=== PATIENT | female | born 1955 | race Caucasian/White ===

== ENCOUNTER 2020-07-19 10:17 | Inpatient (IN) | payer OTHER ==
[2020-07-19] MEDS ORDERED: Lactated Ringers 1,000 ML IV SCH ×2 (10:45→14:45)
[2020-07-19] MEDS ORDERED: Cyanocobalamin (Vitamin B12) 1,000 MCG/ML SDV IM ONE (10:45)
[2020-07-19] MEDS ORDERED: Glycopyrrolate 0.2 MG/ML 2 ML SDV IVPUSH ONE (11:30)
[2020-07-19] MEDS ORDERED: MVI, Adult with Vitamin K 10 ML, Thiamine 200 MG, Chromium/Copper/Mang/Selen/Zn 1 ML in... IV ONE ×4 (11:45)
[2020-07-19] MEDS ORDERED: Midazolam 1 MG/ML 2 ML SDV ONE (12:11)
[2020-07-19] MEDS ORDERED: fentaNYL 100 MCG/2 ML SDV ONE (12:11)
[2020-07-19] MEDS ORDERED: Propofol 200 MG/20 ML SDV ONE (12:11)
[2020-07-19] MEDS ORDERED: Iopamidol 612 MG/ML 500 ML Multipack Bottle PO ONE (14:13)
[2020-07-19] MEDS ORDERED: Iopamidol 612 MG/ML 500 ML Multipack Bottle IV ONE (14:14)
--- NOTE | 2020-07-19 15:29 | CT ---
Abdomen Pelvis w Cont CLINICAL HISTORY: Possible small bowel obstruction, previous bariatric surgery COMPARISON: None. TECHNIQUE: Transverse scans were obtained from the base of the lungs to the pubic symphysis following oral contrast and IV infusion of contrast.Auto dosage reduction and iterative reconstructiontechniques employed. FINDINGS: The lung bases are clear. There has been previous bariatric surgery. The liver has a wedge-shaped area of low-attenuation in the anterior segment of the right lobe of the liver. This is also seen in the falciform ligament. This may represent some focal fatty infiltration. Anatomic variant is also a consideration. Mass is felt less likely. TThe gallbladder has a normal appearance. The spleen has a normal size and shape. The pancreas shows no mass or inflammatory change. The adrenal glands appear normal bilaterally . The kidneys show no mass, stones or hydronephrosis. The ureters have normal course and contour. The bladder has a normal contour The aorta is free of aneurysm. There is no suspicious retroperitoneal adenopathy. Small intestinal configuration is nonacute. The appendix is not definitively identified IMPRESSION: Previous gastric bypass Small intestinal configuration is nonacute. Areas of low-attenuation in the right lobe of the liver and near the falciform ligament are felt to be anatomic variant or some focal fatty infiltration. Mass is felt less likely but not excluded. Ultrasound recommended
[2020-07-19] MEDS: Dextrose 5%-Lactated Ringers 1,000 ML IV SCH (17:18)
[2020-07-19] MEDS: Vitamin A 100,000 Units/2 ML SDV IM SCH (17:18)
[2020-07-20] MEDS: Dextrose 5%-Lactated Ringers 1,000 ML IV SCH (03:12)
[2020-07-20] MEDS ORDERED: Naloxone 0.4 MG/ML SDV IV PRN (06:00)
[2020-07-20] MEDS: Losartan 50 MG Tab PO SCH (06:18)
[2020-07-20] MEDS ORDERED: fentaNYL 250 MCG/5 ML SDV ONE (09:18)
[2020-07-20] MEDS ORDERED: Glycopyrrolate 0.2 MG/ML 5 ML MDV ONE (09:19)
[2020-07-20] MEDS ORDERED: Rocuronium 50 MG/5 ML Vial ONE (09:19)
[2020-07-20] MEDS ORDERED: Succinylcholine 200 MG/10 ML MDV ONE (09:19)
[2020-07-20] MEDS ORDERED: Neostigmine Methylsulfate 1 MG/ML 5 ML Syringe ONE (09:19)
[2020-07-20] MEDS ORDERED: Dexamethasone 4 MG/ML SDV ONE (09:19)
[2020-07-20] MEDS ORDERED: Propofol 200 MG/20 ML SDV ONE (09:19)
[2020-07-20] MEDS ORDERED: Ondansetron 4 MG/2 ML SDV ONE (09:19)
[2020-07-20] MEDS: Venlafaxine 75 MG Cap.ER PO SCH (09:21)
[2020-07-20] MEDS ORDERED: Lidocaine 1% with EPINEPHrine 1:100,000 50 ML MDV ONE (10:24)
[2020-07-20] MEDS ORDERED: Meropenem 500 MG SDV ONE (10:24)
[2020-07-20] MEDS ORDERED: Bupivacaine 0.5% 50 ML MDV ONE (10:24)
[2020-07-20] MEDS ORDERED: cefOXitin 2 GM in Sodium Chloride 0.9% 50 ML IV ONE (11:00)
[2020-07-20] MEDS ORDERED: Ropivacaine 36 ML, dexAMETHasone 8 MG, EPINEPHrine 0.4 MG, Sodium Chloride 0.9% 41.6 ML NERVRT SCH ×4 (11:00)
[2020-07-20] MEDS ORDERED: Ketamine 50 MG in Sodium Chloride 0.9% 49.5 ML IV SCH (11:00)
[2020-07-20] MEDS ORDERED: Ketamine 500 MG/5 ML MDV IV SCH (11:00)
[2020-07-20] MEDS ORDERED: Magnesium Sulfate 2.1 GM in Sodium Chloride 0.9% 100 ML IV SCH (11:00)
[2020-07-20] MEDS ORDERED: Magnesium Sulfate 3.4 GM in Sodium Chloride 0.9% 250 ML IV ONE (11:00)
[2020-07-20] MEDS: Vitamin A 100,000 Units/2 ML SDV IM SCH (13:10)
[2020-07-20] MEDS ORDERED: Lactated Ringers 1,000 ML ONE (13:15)
[2020-07-20] MEDS ORDERED: fentaNYL 100 MCG/2 ML SDV ONE (13:59)
[2020-07-20] MEDS ORDERED: Dextrose 5%-Lactated Ringers 1,000 ML IV SCH (14:45)
[2020-07-20] MEDS ORDERED: Albuterol/Ipratropium 3.0-0.5 MG/3 ML Neb Soln INH PRN (15:00)
[2020-07-20] MEDS ORDERED: hydrOXYzine HCL 100 MG/2 ML SDV IM PRN (15:00)
[2020-07-20] MEDS ORDERED: Ondansetron 4 MG/2 ML SDV IVPUSH PRN (15:00)
[2020-07-20] MEDS ORDERED: Acetaminophen 500 MG Tab PO PRN (15:00)
[2020-07-20] MEDS ORDERED: Calcium Gluconate 10% 1 GM/10 ML SDV IVPUSH PRN (15:00)
[2020-07-20] MEDS ORDERED: Labetalol 20 MG/4 ML Syringe IVPUSH PRN (15:00)
[2020-07-20] MEDS ORDERED: Metoclopramide 10 MG/2 ML SDV IVPUSH PRN (15:00)
--- NOTE | 2020-07-20 15:21 | PN ---
DATE OF SERVICE: 07/20/2020 SUBJECTIVE: Lexie had an EGD yesterday and was found to have a partial small bowel obstruction. She is n.p.o., has no questions or concerns. OBJECTIVE: GENERAL: Lexie Hastings is a pleasant 65-year-old female. She is alert and orientated. VITAL SIGNS: TPR at 0728; 98.7, 67, 18, blood pressure 139/66. HEENT: Negative. NECK: Supple. HEART: Regular rate and rhythm. LUNGS: Clear. ABDOMEN: Negative. EXTREMITIES: Without peripheral edema. ASSESSMENT: Partial small bowel obstruction. PLAN: Orders have already been written. Consent signed. After preoperative evaluation, discussion of possible risks and possible complications, the patient wishes to proceed with surgical procedure. We will evaluate p.r.n. or in a.m. Orders to be written postoperatively. Josiane Bourne PA-C /[id number]
[2020-07-20] MEDS: HYDROmorphone/Normal Saline 15 MG/30 ML PCA IV PRN (15:48)
[2020-07-20] MEDS ORDERED: MVI, Adult with Vitamin K 10 ML, Thiamine 200 MG, Chromium/Copper/Mang/Selen/Zn 1 ML in... IV SCH ×4 (16:00)
[2020-07-20] MEDS ORDERED: Pantoprazole 40 MG Vial IVPUSH SCH (16:00)
[2020-07-20] MEDS: Acetaminophen 500 MG Tab PO SCH ×2 (16:46→23:35)
[2020-07-20] MEDS: cefOXitin 2 GM in Sodium Chloride 0.9% 50 ML IV SCH ×2 (17:15→23:35)
[2020-07-20] MEDS: Heparin Sodium 5,000 Units/ML Vial SUBCUT SCH (20:16)
[2020-07-20] MEDS: Celecoxib 200 MG Cap PO SCH (20:16)
[2020-07-21] MEDS: diphenhydrAMINE 50 MG/ML SDV IVPUSH PRN (03:16)
[2020-07-21] MEDS ORDERED: Iopamidol 612 MG/ML 50 ML SDV PO ONE (04:00)
[2020-07-21] MEDS: cefOXitin 2 GM in Sodium Chloride 0.9% 50 ML IV SCH ×3 (05:27→18:39)
[2020-07-21] MEDS: Dextrose 5%-Lactated Ringers 1,000 ML IV SCH (07:49)
[2020-07-21] MEDS: Celecoxib 200 MG Cap PO SCH ×2 (07:59→20:51)
[2020-07-21] MEDS: Acetaminophen 500 MG Tab PO SCH ×2 (07:59→15:13)
[2020-07-21] MEDS: Heparin Sodium 5,000 Units/ML Vial SUBCUT SCH ×2 (07:59→20:51)
[2020-07-21] MEDS: Venlafaxine 75 MG Cap.ER PO SCH (08:00)
[2020-07-21] MEDS: Losartan 50 MG Tab PO SCH (08:01)
[2020-07-21] MEDS: Docusate Sodium 100 MG Cap PO SCH ×2 (08:18→20:52)
[2020-07-21] MEDS: Bisacodyl 5 MG Tab PO SCH ×2 (08:18→20:52)
[2020-07-21] MEDS ORDERED: Vitamin A 100,000 Units/2 ML SDV IM ONE (10:00)
[2020-07-21] MEDS ORDERED: Sodium Chloride 0.9% 400 ML IV SCH (10:00)
[2020-07-21] MEDS: Pantoprazole 40 MG Tab.CR PO SCH (10:43)
[2020-07-21] MEDS: Sodium Ferric Gluconate Cmplex 250 MG in Sodium Chloride 0.9% 100 ML IV SCH (10:44)
[2020-07-21] MEDS: Cyclobenzaprine 10 MG Tab PO PRN (14:29)
--- NOTE | 2020-07-21 14:44 | PN ---
DATE OF SERVICE: 07/21/2020 The patient is postop day 1 from small bowel resection and strictureplasty for release of partial small-bowel obstruction. She is little bit unstable walking better today. Otherwise, we will go to a step-2 diet, back down on the IV rate. Her ferritin is now at 30, and this will likely drop over the next few days. Given this, we will give her some ferric gluconate today and tomorrow, and otherwise, begin some bowel stimulation. We will get the PROP DRAWER going for today. Yinka Jett MD /[id number]
[2020-07-21] MEDS ORDERED: MVI, Adult with Vitamin K 10 ML, Thiamine 200 MG, Chromium/Copper/Mang/Selen/Zn 1 ML in... IV SCH ×4 (16:00)
[2020-07-21] MEDS: HYDROmorphone/Normal Saline 15 MG/30 ML PCA IV PRN (16:25)
[2020-07-21] MEDS: Lactated Ringers 1,000 ML IV SCH ×2 (17:52→21:45)
[2020-07-21] MEDS ORDERED: Lactated Ringers 500 ML IV SCH (21:30)
[2020-07-22] MEDS: Acetaminophen 500 MG Tab PO SCH ×4 (01:56→23:46)
[2020-07-22] MEDS: Dextrose 5%-Lactated Ringers 1,000 ML IV SCH ×3 (03:49→19:49)
[2020-07-22] MEDS: diphenhydrAMINE 50 MG/ML SDV IVPUSH PRN ×2 (05:24→13:48)
[2020-07-22] MEDS: Pantoprazole 40 MG Tab.CR PO SCH (07:26)
[2020-07-22] MEDS: Heparin Sodium 5,000 Units/ML Vial SUBCUT SCH ×2 (07:27→20:19)
[2020-07-22] MEDS ORDERED: Cyanocobalamin (Vitamin B12) 1,000 MCG/ML SDV IM ONE (09:00)
[2020-07-22] MEDS: Venlafaxine 75 MG Cap.ER PO SCH (09:15)
[2020-07-22] MEDS: Tamsulosin 0.4 MG Cap.ER PO SCH ×2 (09:15→20:19)
[2020-07-22] MEDS: Vitamin A 10,000 Unit Cap PO SCH (09:15)
[2020-07-22] MEDS: Celecoxib 200 MG Cap PO SCH ×2 (09:16→20:27)
[2020-07-22] MEDS: Losartan 50 MG Tab PO SCH (09:16)
[2020-07-22] MEDS: Docusate Sodium 100 MG Cap PO SCH ×2 (09:16→20:19)
[2020-07-22] MEDS: HYDROmorphone 2 MG Tab PO PRN ×3 (09:36→20:19)
[2020-07-22] MEDS ORDERED: Sodium Chloride 0.9% 200 ML IV SCH (10:00)
[2020-07-22] MEDS: Sodium Ferric Gluconate Cmplex 250 MG in Sodium Chloride 0.9% 100 ML IV SCH (11:40)
[2020-07-22] MEDS ORDERED: Lactated Ringers 500 ML IV STA (13:52)
--- NOTE | 2020-07-22 14:43 | PN ---
DATE OF SERVICE: 07/22/2020 The patient has been afebrile with stable vital signs, moving her bowels, tolerated oral intake. We will back down on the IV rate. She has still retained urine and Pagan catheter was put back, and we will give her Flomax this morning as well as tonight and switch over to oral pain medications, step-3 diet. She may be ready for discharge home if she is able to tolerate the diet. Yinka Jett MD /[id number]
[2020-07-22] MEDS: Cyclobenzaprine 10 MG Tab PO PRN (20:19)
[2020-07-23] MEDS: HYDROmorphone 2 MG Tab PO PRN (03:44)
[2020-07-23] MEDS: Pantoprazole 40 MG Tab.CR PO SCH (07:55)
[2020-07-23] MEDS: Celecoxib 200 MG Cap PO SCH (09:07)
[2020-07-23] MEDS: Docusate Sodium 100 MG Cap PO SCH (09:07)
[2020-07-23] MEDS: Losartan 50 MG Tab PO SCH (09:08)
[2020-07-23] MEDS: Acetaminophen 500 MG Tab PO SCH (09:08)
[2020-07-23] MEDS: Vitamin A 10,000 Unit Cap PO SCH (09:08)
[2020-07-23] MEDS: Venlafaxine 75 MG Cap.ER PO SCH (09:09)
--- NOTE | 2020-07-23 09:35 | CR ---
[facility] HISTORY: Postbariatric surgery FINDINGS: Patient swallowed water-soluble contrast. Upright views of the abdomen show no evidence of extravasation or obstruction. IMPRESSION: Status post bariatric surgery No extravasation or obstruction seen
--- NOTE | 2020-07-23 12:37 | OR ---
DATE OF PROCEDURE: 07/20/2020 SURGEON: Yinka Jett MD PREOPERATIVE DIAGNOSIS: Partial small bowel obstruction. POSTOPERATIVE DIAGNOSES: 1. Partial small bowel obstruction secondary to: a. Small bowel volvulus. b. Focal narrowing of Moriah limb at the entrance of the jejunojejunostomy. c. 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 2. Incarcerated incisional (trocar site) hernia. OPERATIVE PROCEDURES: Exploratory laparotomy with lysis of adhesions: 1. Small bowel resection (56000). 2. Small bowel stricturoplasty (53126). 3. Repair of incarcerated incisional hernia (50833). 4. Placement of Interceed mesh (00546). ANESTHESIA: General. SCRAP METAL BURNER: Josiane Bourne PA-C INDICATIONS FOR PROCEDURE: Please see note dictated yesterday. Plan is to proceed with exploratory laparotomy with lysis of adhesions and/or bowel resection. Potential risks including bleeding, infection, leaks from GI tract closures, problems with bowel obstruction recurring or persisting over time were all reviewed, and the patient wishes to proceed. DETAILS OF PROCEDURE: The patient was taken to the operating room and placed in a supine position. After general endotracheal anesthesia was induced, she was converted to lithotomy position and a Pagan catheter inserted. A midline incision from the umbilicus roughly a handsbreadth toward the xiphoid was made and carried down through the full-thickness of abdominal wall. Peritoneal cavity was noted to have some more than normal clear ascitic fluid consistent with some degree of chronic bowel obstruction. Otherwise, examination of bowel showed there to be a focal volvulus where a portion of the common limb had prolapsed underneath the mesenteric defect underneath the jejunojejunostomy. After this was reduced, that area was subsequently closed off with a 2-0 silk stitch. The patient was noted to have some narrowing at the point where the Moriah limb entered the jejunojejunostomy and this area anastomosis somewhat dilated. There was a separate stricture at the point where the biliopancreatic limb joined the common limb with the biliopancreatic limb also being quite dilated, all consistent with the patient's preoperative symptoms. At this point, the point where the small bowel came as a Moriah limb to the jejunojejunostomy was divided with a AAMIR stapler. A small segment of this was resected and this was anastomosed and subsequently completed roughly 20 cm distal to the previous jejunojejunostomy with a [id number] enteroenterostomy with 2 internal firings of the AAMIR stapler; first 60 mm, then 30 mm stapler. The common opening closed transversely with the same stapler. The angles were anastomosed and mesenteric defect approximated with some 3-0 Vicryl stitch and the mesenteric defect with 2-0 silk stitch. The patient was noted to still have some stricturing at the outlet of the biliopancreatic limb junction with the common limb. This area was opened on its antimesenteric border and 2 internal firings of the 60 mm stapler were accomplished. Common opening was then closed transversely with the same stapler, and the angles anastomosed, and mesenteric defect approximated as per the first anastomosis. At this point, no further problems were noted. Of note, the patient was noted to have a trocar site hernia located just above the umbilicus with the hernia contents being excised upon entry to the abdomen. recurrent adhesion formation, Interceed mesh was placed underneath the incision, from there down toward the pelvis to displace those surfaces from the underlying viscera and limit recurrent adhesion formation. Bilateral transversus abdominis plane blocks were placed during the case and incisions then closed with #2 Vicryl stitch at the fascia level. The fascia was then anesthetized with 0.5% Marcaine mixed with lidocaine, and the subcutaneous tissue approximated with some 3-0 and 4-0 Vicryl stitch deep and lillian for the skin. Dressing was applied. The patient was taken to the recovery room in satisfactory condition. Physician parts room assistant, Josiane Bourne, played an essential role in assisting in this case, helping to position the patient, retract structures as needed, as well as suturing and cutting sutures when indicated. Her presence improved patient safety and decreased the operative time. Yinka Jett MD /[id number]
--- NOTE | 2020-07-23 13:01 | PN ---
DATE OF SERVICE: 07/19/2020 The patient underwent earlier today an upper endoscopy, which was entirely normal, status post gastric bypass, with the patient having had that procedure in 2003. She has had several weeks or months now of intermittent vomiting, and with a normal upper GI endoscopy, this would likely mean we are dealing with a partial small-bowel obstruction more distally in the system. A CT scan was obtained, which showed no obvious specific areas of obstruction, but this is commonly the case with these partial small-bowel obstructions following the gastric bypass. Given this, the plan will be to proceed with an exploratory laparotomy tomorrow and identification of any other problem if there is within the small bowel or elsewhere with lysis of adhesions and/or small bowel resection. The potential risks of the procedure, including bleeding, infection, leaks from various GI tract closures, and problems with persistence or recurrence of the problem over time, were reviewed, and the patient wishes to proceed and will be set up for tomorrow. Yinka Jett MD /[id number]
--- NOTE | 2020-07-23 13:16 | OR ---
DATE OF PROCEDURE: 07/19/2020 SURGEON: Yinka Jett MD PREOPERATIVE DIAGNOSIS: Status post Moriah-en-Y gastric bypass with history of recurrent vomiting. POSTOPERATIVE DIAGNOSES: 1. Status post Moriah-en-Y gastric bypass with history of recurrent vomiting. 2. Normal upper gastrointestinal endoscopy. OPERATIVE PROCEDURE: Upper gastrointestinal endoscopy. ANESTHESIA: IV sedation. INDICATIONS FOR PROCEDURE: This is a 65-year-old status post Moriah-en-Y gastric bypass in 2003. Over the past few months, she has had problems with episodes of recurrent vomiting. The plan is to proceed with initial upper GI endoscopy with biopsies and/or dilation as indicated. Potential risks of the procedure including bleeding and perforation were discussed, and the patient wishes to proceed. DETAILS OF PROCEDURE: The patient was taken to the operating room and placed in a left lateral decubitus position. IV sedation was administered after which the upper GI endoscope was passed orally through the length of the esophagus, through the gastric pouch, and then through the gastrojejunostomy roughly 20 cm into the Moriah limb. Findings at this point were entirely normal. There were no areas of significant inflammation, narrowing, or stricturing, and no backup of any GI tract content into the Moriah limb. The scope was then withdrawn, the above findings reconfirmed, and the procedure was then concluded. Given this, the plan will be to proceed with a CT scan, probable exploratory laparotomy for what is likely to be a more distal small bowel obstruction occurring intermittently. Yinka Jett MD /[id number]
--- NOTE | 2020-07-23 17:08 | DISCH ---
ADMISSION DIAGNOSES: Small bowel obstruction, status post Moriah-en-Y gastric bypass surgery, unspecified surgical malabsorption, B12 deficiency. DISCHARGE DIAGNOSES: Exploratory laparotomy with repair of incisional hernia and small bowel resection for partial small bowel obstruction and incisional hernia. Date of surgery: 07/20/2020. Surgeon: Yinka Jett MD. HISTORY: Lexie Hastings is a pleasant 65-year-old female with partial small bowel obstruction. After preoperative evaluation and discussion of possible risks and possible complications, she wished to proceed with surgical procedure. HOSPITAL COURSE: Lexie had her surgery on 07/20/2020. She had no operative complications. On postoperative day #1, she was started on a step 2 diet. Her IV was decreased. She was given some ferric gluconate on 07/21/2020 and 07/22/2020 for a ferritin of 4. She also was given vitamin A injections for a low vitamin A. On 07/22/2020, postop day #2, she started having bowel movements. She still retained urine, so a Pagan catheter was put back in. She was started on Flomax and advanced to a step 3 diet. On 07/23/2020, her Pagan catheter was removed. She voided. Pain was well controlled, and she was able to be discharged to home without any complications. PHYSICAL EXAMINATION: GENERAL: Lexie Hastings is a 65-year-old female. VITAL SIGNS: Height is 5 feet 4.96 inches, weight is 158 pounds. TPR at 07:35, 97.7; 69; 12; blood pressure 137/71. HEENT: Negative. NECK: Supple. HEART: Regular rate and rhythm. LUNGS: Clear. ABDOMEN: Dressings dry and intact. Abdominal binder is on. EXTREMITIES: Without peripheral edema. DISPOSITION: Discharged to home. CONDITION: Stable and improving. FOLLOWUP: Appointment with Josiane Bourne PA-C on 07/30/2020 at 10 a.m. NEW PRESCRIPTIONS: 1. Celebrex 200 mg oral b.i.d., #28. 2. Dilaudid 2 mg every 4 hours p.r.n. pain, #42. 3. Flexeril 10 mg every 8 hours p.r.n. muscle spasms, #30. 4. Tylenol 1000 mg every 8 hours p.r.n. pain. 5. To resume taking her home medication of: a. Vitamin C 500 mg twice daily. b. Aspirin 81 mg daily. c. Calcium carbonate 500 mg twice daily. d. Vitamin D3 125 mcg twice daily. e. Vitamin B12 5000 mcg oral daily. f. Flexeril 10 mg oral every 8 hours. g. Ferrous fumarate 1 daily. h. Fish oil 1 g oral daily. i. Glucosamine 1500 mg oral 3 times a day. j. Cozaar 50 mg oral daily. k. Lutein 20 mg oral daily. l. Multivitamin 1 twice daily. m. Effexor XR 150 mg oral daily. n. Effexor 75 mg 1 daily. o. Vitamin A 10,000 International Units oral daily. p. Zeaxanthin 4 mg daily. q. Zinc 15 mg oral daily. DIET: Step 2 gastric bypass diet for 3 days and slowly advanced to step 3. ACTIVITY: No lifting over 10 pounds for 6 weeks. Other activity: Walk at least 6 times daily inside your home. Driving: Do not drive for 1 week or while on narcotic and muscle relaxants. Shower/bathing: May shower. DISCHARGE INSTRUCTIONS: Notify provider if any fever, increased pain, nausea, vomiting. Wound incision: Keep site clean and dry. Wear abdominal binder for 6 weeks and then as tolerated. Take off Aquacel dressing on , 07/26/2020. SPECIAL INSTRUCTION: Use incentive spirometer 10 times every hour while awake.
== END 2020-07-23 11:38 | disposition home or self-care (01) | DRG 329 ==
LOC: JP.SDS 10:17 → JP.SDSSCHI 10:17 → EDSTATUS 13:45 → JP.MS 14:00
PROVIDERS: ADMIT Surgery; ATTEND Surgery
PROC: 0DB80ZZ Excision of Small Intestine, Open Approach (ICD-10-PCS; principal; 2020-07-20)
PROC: 0WQF0ZZ Repair Abdominal Wall, Open Approach (ICD-10-PCS; 2020-07-20)
PROC: 0DQ80ZZ Repair Small Intestine, Open Approach (ICD-10-PCS; 2020-07-20)
PROC: 3E0M05Z Introduction of Adhesion Barrier into Peritoneal Cavity, Open Approach (ICD-10-PCS; 2020-07-20)
DX: K95.89 Other complications of other bariatric procedure (principal); K56.2 Volvulus; K91.2 Postsurgical malabsorption, not elsewhere classified; K56.600 Partial intestinal obstruction, unspecified as to cause; Y83.8 Other surgical procedures as the cause of abnormal reaction of the patient, or of later complication, without mention of misadventure at the time of the procedure; K43.2 Incisional hernia without obstruction or gangrene; E53.8 Deficiency of other specified B group vitamins; Z98.84 Bariatric surgery status; Z79.82 Long term (current) use of aspirin; Z79.899 Other long term (current) drug therapy
CPT/HCPCS: 36415; 51702; 74177; 74177-26; 74240; 74240-26; 80053; 82728; 83735; 84100; 85025; 94762; A9270-GY; C9113; J0171; J0330; J0694; J1100; J1170; J1200; J1644; J2185; J2250; J2405; J2704; J2710; J2795; J2916; J3010; J3410; J3411; J3420; J3475; J3490; J7040; J7050; J7120; J7121; Q9967